=== PATIENT | male | born 1945 | race Caucasian/White ===

== ENCOUNTER → 2020-03-07 | Outpatient (CLI) | payer MEDICARE ==
[~2020-03-07] MED LIST: ALEVE 220MG220 MG PO; MULTI VITAMINS1 TAB; NO HOME MEDICATIONS; NORCO 325 MG-51 TAB PO; SUDAFED30 MG PO
== END ==
LOC: COL.RAD 10:59
DX: D35.01 Benign neoplasm of right adrenal gland (principal); N28.1 Cyst of kidney, acquired; Z85.51 Personal history of malignant neoplasm of bladder
CPT/HCPCS: Q9967

== ENCOUNTER → 2020-09-05 | Outpatient (CLI) | payer MEDICARE ==
[~2020-09-05] VITALS: Ht 185.4 cm; Wt 104.5 kg
[~2020-09-05] MED LIST changes: +COZAAR100 MG PO
[2020-09-05 10:24] VITALS: BP 160/82; PULSE 77
--- NOTE | 2020-09-05 12:11 | NUR ---
procedrue cancelled by
== END ==
LOC: COL.RAD 09:00
DX: R59.0 Localized enlarged lymph nodes (principal); C43.59 Malignant melanoma of other part of trunk

== ENCOUNTER 2020-09-15 07:37 | Day surgery (SDC) | payer MEDICARE ==
[~2020-09-15] VITALS: Ht 182.9 cm; Wt 103.6 kg
[2020-09-15 10:11] VITALS: BP 162/79; PULSE 66; TEMP 97.8
[2020-09-15] MEDS ORDERED: NORCO 325 MG-51 TAB PO (14:11)
[2020-09-15 14:40] VITALS: BP 147/70; PULSE 84; TEMP 98.1
--- NOTE | 2020-09-15 14:40 | NUR ---
Pt to [facility] bay 8 via cart from PACU. Pt awake and alert. Pt denies pain or nausea. Dressing to left axillary is clean dry and intact. Dressing to mid back has quarter sized red shading noted. Will continue to monitor. Water given per pt request. O2 on at 2 liters via nasal canula. Call light within reach.
[2020-09-15 14:55] VITALS: BP 151/69; PULSE 84; TEMP 97.8
--- NOTE | 2020-09-15 14:55 | NUR ---
Pt up to restroom with stand by assistance. Pt voids large amount without difficulties. No change to shading on dressing to back. Pt back to room. O2 discontinued. Call light within reach.
[2020-09-15 15:10] VITALS: BP 154/81; PULSE 77
--- NOTE | 2020-09-15 15:10 | NUR ---
Pt continues to rest. Denies need for food. Pt states "I want to go eat with my ." Will continue to monitor. Call light within reach.
[2020-09-15 15:25] VITALS: BP 151/67; PULSE 81
--- NOTE | 2020-09-15 15:25 | NUR ---
Pt continues to rest. Denies needs. Call light within reach.
--- NOTE | 2020-09-15 15:35 | NUR ---
IV site discontinued with all parts intact. Discharge instructions reviewed. Pt voices understanding. Pt up to dress. Call light within reach.
--- NOTE | 2020-09-15 16:00 | NUR ---
Pt escorted to private car via wheel chair. Pt accompanied home by his .
== END 2020-09-15 16:00 | disposition home or self-care (01) ==
LOC: SDCO 07:37
DX: C43.59 Malignant melanoma of other part of trunk (principal); I10 Essential (primary) hypertension; Z85.828 Personal history of other malignant neoplasm of skin; Z85.51 Personal history of malignant neoplasm of bladder; Z20.822 Contact with and (suspected) exposure to COVID-19
CPT/HCPCS: A9541; J0690; J1100; J1885; J2250; J2405; J2704; J3010; J7120; Q9968

== ENCOUNTER 2023-12-08 10:23 | Emergency (ER) | payer MEDICARE ==
[~2023-12-08] VITALS: Ht 182.9 cm; Wt 113.6 kg
[~2023-12-08 10:23] MED LIST changes: +ALEVE PM PO; +NEURONTIN300 MG/CAP PO; +TYLENOL 8 HR PO; +XANAX 0.5MG0.5 MG PO; +[UNRECOGNIZED DRUG - CODE] TOP
[2023-12-08] MEDS ORDERED: Albuterol/Ipratropium 3 MG-0.5 MG/3 ML Neb Soln IH ONE (10:30)
[2023-12-08] MEDS ORDERED: methylPREDNISolone Sod Succ 125 MG/2 ML VIAL IV ONE (10:30)
[2023-12-08 10:32] VITALS: TEMP 100.6
[2023-12-08] MEDS ORDERED: NS 1,000 ML IV SCH (10:45)
[2023-12-08 10:46] LABS: BASO % 0.2 % (0.0-2.0); EOS % 0.2 % (0.0-4.0); GRAN # 11.3 K/mm3 (1.4-6.5); GRAN % 86.6 % (42.2-75.2); HEMATOCRIT 39.2 % (42.0-52.0); HEMOGLOBIN 13.1 g/dl (13.5-18.0); LYMPH # 0.5 K/mm3 (1.2-3.4); LYMPH % 3.6 % (20.0-51.0); MEAN CELL VOLUME 90 fl (80.0-100.0); MEAN CORPUSCULAR HEMOGLOBIN 30 pg (27-31); MEAN CORPUSCULAR HGB CONC 33 g/dl (33.0-37.0); MEAN PLATELET VOLUME 11.9 fl (7.4-10.4); MONO # 1.1 K/mm3 (0.1-0.6); MONO % 8.4 % (1.7-9.3); PLATELET COUNT 105 K/mm3 (130-400); RED BLOOD COUNT 4.37 M/mm3 (4.20-5.60); REDCELL DISTRIBUTION WIDTH-CV 13.8 % (11.5-14.5)
[2023-12-08] MEDS ORDERED: ULTRAM 50MG TAB50 MG PO (10:48)
[2023-12-08] MEDS ORDERED: NORFLEX 10100 MG/TAB PO (10:49)
[2023-12-08] MEDS ORDERED: NIZORAL SHAMPO120 M1 TOP (10:49)
[2023-12-08] MEDS ORDERED: HYZAAR 25 MG-101 TAB PO (10:50)
[2023-12-08] MEDS ORDERED: MEDROL 4MG DOSPA4 MG PO (10:54)
[2023-12-08] MEDS ORDERED: Ondansetron 4 MG/2 ML VIAL IV ONE (11:00)
[2023-12-08] MEDS ORDERED: Morphine 4 MG/ML VIAL IV ONE ×2 (11:00→16:45)
[2023-12-08 11:11] LABS: ALBUMIN 2.4 g/dL (3.4-4.8); BILIRUBIN,TOTAL 1.3 mg/dL (0.2-1.2); CALCIUM 8.7 mg/dL (8.4-10.2); CREATININE, serum 1.85 mg/dL (0.72-1.25); POTASSIUM 3.5 mEq/L (3.5-4.5); TOTAL PROTEIN 6.2 g/dl (6.2-8.1)
[2023-12-08] MEDS ORDERED: Iohexol 300 - 100 ML VIAL IV ONE (12:09)
[2023-12-08] MEDS ORDERED: NS 100 ML IV SCH (12:09)
[2023-12-08 12:16] LABS: URINE APPEARANCE CLOUDY (CLEAR/HAZY); URINE BLOOD NEGATIVE (NEGATIVE); URINE COLOR Dark Yellow (YELLOW); URINE GLUCOSE NEGATIVE (NEGATIVE); URINE KETONE NEGATIVE (NEGATIVE); URINE NITRATE NEGATIVE (NEGATIVE); URINE PROTEIN(semi-quant) TRACE (NEGATIVE)
[2023-12-08] MEDS ORDERED: cefTRIAXone 2 G in Water For Injection,Sterile 20 ML IV ONE (12:30)
[2023-12-08 12:44] LABS: COLLECTION METHOD CATHETER; URINE RBC 0-2 /hpf (0-2); URINE WBC 0-2 /hpf (0-2)
[2023-12-08 12:45] LABS: SQUAMOUS EPITHELIAL 0-2 /hpf (0-10); URINE BACTERIA RARE /hpf (NONE SEEN)
[2023-12-08] MEDS ORDERED: Azithromycin 500 MG in NS 250 ML IV ONE (14:30)
[2023-12-08 17:30] VITALS: BP 129/84; PULSE 76
== END 2023-12-08 17:30 | disposition short-term general hospital (02) ==
LOC: COL.ER 10:23
PROVIDERS: Family Medicine
DX: J18.9 Pneumonia, unspecified organism (principal); M48.061 Spinal stenosis, lumbar region without neurogenic claudication
CPT/HCPCS: J0456; J0696; J2270; J2405; J7030; J7050; Q9967